=== PATIENT | male | born 1975 | race Caucasian/White ===

== ENCOUNTER 2024-12-15 07:06 | Emergency (ER) | payer OTHER, SELFPAY ==
[2024-12-15] VITALS (8 sets, daily range): BP systolic 136–170; BP diastolic 82–104; BMI 38.0
--- NOTE | 2024-12-15 07:14 | ED.GENMED ---
History of Present Illness
<Yovany Rios Mindy, DO - Last Filed: 12/15/24 07:38>
General
Chief Complaint: Abdominal Symptoms
Time Seen by Provider: 12/15/24 07:14
<Ke Alvarez MD, Resident - Last Filed: 12/15/24 11:56>
General
Source: patient
Exam Limitations: none
History of Present Illness
History of Present Illness:
This is a 49-year-old male who presents to the ED complaining of abdominal tenderness in the epigastric area that started around 2:15 AM today. The patient reports sharp abdominal pain that was initially 8/10 but got better on its own after a few
hours. The pain did not radiate anywhere else. Nothing makes the pain better, nothing makes the pain worse. He tried going to work today around 7 AM, but pain worsened prompting him to come to the ED for evaluation. He has not had this pain in
the past. He denies nausea, vomiting, diarrhea, fevers, chills, weight loss, chest pain. His last meal was last night were he had a hot sausage. He also had a bowel movement last night. At bedside, he reports pain is 5 out of 10. He denies any
abdominal surgery.
Past History
<Ke Alvarez MD, Resident - Last Filed: 12/15/24 11:56>
Past History
ED Past Medical History: GERD, HTN, Hypercholesterolemia and Other (Gout, history of kidney stones)
ED Past Surgical History: None
Social History
Tobacco: Non-smoker
Alcohol: None
Drug: None
Personal:
Living: with family
Employment: Employed
Review of Systems
<Ke Alvarez MD, Resident - Last Filed: 12/15/24 11:56>
Review of Systems
All Other Systems: ROS reviewed and negative except as documented in HPI and ROS
Constitutional: Denies fever, weight loss, fatigue or chills
Respiratory: Reports no symptoms
Cardiac: Reports no symptoms
ABD/GI: Reports abdominal pain; Denies nausea, vomiting, diarrhea, constipated, bloody stools or black stools
: Reports no symptoms
Musculoskeletal: Reports no symptoms
Phy Exam
<Ke Alvarez MD, Resident - Last Filed: 12/15/24 11:56>
General Physical Exam
General Presentation: well appearing and mild distress
General Skin: warm and dry
General Mental: alert
General Hydration: appears well hydrated
Cardiovascular Exam
Cardiovascular Exam: regular rate/rhythm and no murmur
Pulmonary Exam
Pulmonary Exam: lungs clear, no respiratory distress and no crackles
Gastrointestinal Exam
Gastrointestinal Exam: normal bowel sounds, soft, no organomegaly, no pulsatile mass, non distended and tender (Tender to palpation in epigastric region)
Auscultation of Abdomen: normal
Course
<Yovany Guillen, DO - Last Filed: 12/15/24 07:38>
Orders/Labs/Results
Orders:
Orders
12/15/24 07:17
EKG [Electrocardiogram (*1)] Urgent
Reason for Study: Abdominal Pain
12/15/24 07:18
EKG- Treatment ONCE
12/15/24 07:37
Famotidine [Pepcid] 20 mg PO NOW STA
US Abdomen Complete/Upper Stat
Comment:
Reason For Exam: epigastric pain
12/15/24 07:50
CMP [Comprehensive Metabolic Panel] Urgent
Complete Blood Count/With Diff Urgent
Lipase Urgent
12/15/24 07:52
Famotidine [Pepcid] 20 mg .ROUTE .STK-MED ONE
12/15/24 07:53
Famotidine [Pepcid] 20 mg IV NOW STA
Abnormal Lab Results
12/15/24
07:50
WBC 3.6 L 10^3/uL
(4.8-10.8)
RBC 4.50 L 10^6/uL
(4.70-6.10)
Plt Count 126 L 10^3/uL
(130-400)
Monocytes % 10.1 H %
(1.7-9.3)
Chloride 108 H mmol/L
(98-107)
Glucose 202 H mg/dl
(70-99)
ALT 70 H U/L
(0-50)
12/15/24 07:50
12/15/24 07:50
Vital Signs
Initial and Last Documented VS:
Initial Vital Signs
Temp Pulse Resp BP Pulse Ox
97.5 F 75 16 170/104 98
12/15/24 07:09 12/15/24 07:09 12/15/24 07:09 12/15/24 07:09 12/15/24 07:09
Last Documented Vital Signs
Temp Pulse Resp BP Pulse Ox
97.5 F 62 21 137/89 95
12/15/24 07:09 12/15/24 11:00 12/15/24 11:00 12/15/24 11:00 12/15/24 08:05
<Ke Alvarez MD, Resident - Last Filed: 12/15/24 11:56>
Orders/Labs/Results
Orders:
Orders
12/15/24 07:17
EKG [Electrocardiogram (*1)] Urgent
Reason for Study: Abdominal Pain
12/15/24 07:18
EKG- Treatment ONCE
12/15/24 07:37
Famotidine [Pepcid] 20 mg PO NOW STA
US Abdomen Complete/Upper Stat
Comment:
Reason For Exam: epigastric pain
12/15/24 07:50
CMP [Comprehensive Metabolic Panel] Urgent
Complete Blood Count/With Diff Urgent
Lipase Urgent
12/15/24 07:52
Famotidine [Pepcid] 20 mg .ROUTE .STK-MED ONE
12/15/24 07:53
Famotidine [Pepcid] 20 mg IV NOW STA
Abnormal Lab Results
12/15/24
07:50
WBC 3.6 L 10^3/uL
(4.8-10.8)
RBC 4.50 L 10^6/uL
(4.70-6.10)
Plt Count 126 L 10^3/uL
(130-400)
Monocytes % 10.1 H %
(1.7-9.3)
Chloride 108 H mmol/L
(98-107)
Glucose 202 H mg/dl
(70-99)
ALT 70 H U/L
(0-50)
12/15/24 07:50
12/15/24 07:50
Vital Signs
Initial and Last Documented VS:
Initial Vital Signs
Temp Pulse Resp BP Pulse Ox
97.5 F 75 16 170/104 98
12/15/24 07:09 12/15/24 07:09 12/15/24 07:09 12/15/24 07:09 12/15/24 07:09
Last Documented Vital Signs
Temp Pulse Resp BP Pulse Ox
97.5 F 62 21 137/89 95
12/15/24 07:09 12/15/24 11:00 12/15/24 11:00 12/15/24 11:00 12/15/24 08:05
<Ke Alvarez MD, Resident - Last Filed: 12/15/24 11:56>
MDM/Problems Addressed
MDM/Problems Addressed:
49y/o male with PMH of GERD presents to the ED with sharp epigastric abdominal tenderness that started this morning and does not radiate anywhere else. Denies Nausea, vomiting, diarrhea, constipation, fever, chills, CP, sob. Well appearing in mild
distress, S1/S2 present, no murmurs. Abd soft, non distended, tenderness more prominent in the epigastric region, no guarding, no rigidity. Ultrasound with Impression 'cholelithiasis and thickening of the gallbladder wall but no pericholecystic
fluid, biliary distention or pain over the gallbladder. This suggests chronic cholecystitis although acute is difficult to exclude.' Consulted Surgery to evaluate patient. Given hx of GERD, administered Pepcid in the ED. Surgery evaluated patient in
ED, recommended cholecystectomy done as an outpatient, non emergent basis.
<Ke Alvarez MD, Resident - Last Filed: 12/15/24 11:56>
*Critical Care Note
Total Time (30-74mins, 75-104mins- exclusive of procedures): Not Applicable
ED Attending Note
<Yovany Guillen DO - Last Filed: 12/15/24 07:38>
ED Attending Note
Patient seen and examined by attending physician: Yes
I performed the substantive portion of visit, reviewed & personally made and approve the management plan that is documented in note by myself or KITTY.: Yes
ED Attending Note:
Onset sharp epigastric pain overnight that worsened while going to work. No N/V/D/F/C. No CP/SOB. H/o GERD on Omeprazole and kidney stones. No surgeries. He had endoscopy due to difficulty swallowing 2 years ago and has been on omeprazole since
that time. Will add Pepcid and also check abdominal ultrasound today. He has no lower abdominal tenderness on exam.
-
Portions of this chart may have been created with voice recognition software.� Occasional wrong word or��sound alike� substitutions may have occurred due to the inherent limitations of voice recognition software.
Discharge Plan
Departure
Patient Disposition: Home (Routine Discharge)
Date of Disposition: 12/15/24
Time of Disposition: 11:48
Patient with high blood pressure during this ER visit?: Yes
Discharge Problem:
Cholecystitis
Instructions: Abdominal Pain, BLOOD PRESSURE
Referrals:
Luis Palmer DO [Family Provider] -
Sina Cavazos MD [Active] - Call in 1-3 days for appt
Interventions
Interventions:
*Risk Screen - Suicide Last Done: 12/15/24 07:09
*General Assessment Last Done: 12/15/24 07:33
*Neglect/Abuse Screening Last Done: 12/15/24 07:09
*ED- Fall Risk Assessment Last Done: 12/15/24 07:33
*ED COVID-19 Vaccine History Last Done: 12/15/24 07:33
CL-[facility]pj-[facility] Assessment Last Done: 12/15/24 07:33
Discharge Date and Time
Print Language: NAURUAN
[2024-12-15] MEDS: PEPCID 20 MG IV (07:53)
[2024-12-15 08:00] LABS: % Basophils 0.6 % (0-2); % Eosinophils 2.2 % (0-6); % Immature Granulocytes 0.3 % (0-0.5); % Lymphocytes 34.3 % (20.5-51.1); % Monocytes 10.1 % (1.7-9.3); % Neutrophils 52.5 % (42.2-75.2); Absolute Eosinophils 0.1 10^3/uL (0-0.7); Absolute Lymphocytes 1.2 10^3/uL (1.2-3.4); Absolute Monocytes 0.4 10^3/uL (0.1-0.6); Absolute Neutrophils 1.9 10^3/uL (1.4-6.5); Hematocrit 39.3 % (39.0-52.0); Hemoglobin 13.9 g/dL (13.0-18.0); Mean Corp Hgb Conc. 35.4 g/dL (33.0-37.0); Mean Corpuscular Hgb 30.9 pg (27.0-31.0); Mean Corpuscular Volume 87.3 fL (80.0-94.0); Mean Platelet Volume 9.3 fL (7.4-10.4); Nucleated Red Blood Cells % 0 % (-); Platelet Count 126 10^3/uL (130-400); Red Cell Dist. Width 13.2 % (11.5-14.5); White Blood Cell Count 3.6 10^3/uL (4.8-10.8)
[2024-12-15 08:20] LABS: ALT (SGPT) 70 U/L (0-50); AST (SGOT) 41 U/L (17-59); Albumin 4.2 g/dl (3.5-5.0); Alkaline Phosphatase 84 U/L (38-126); Blood Urea Nitrogen 17 mg/dl (9-20); Calcium 9.7 mg/dl (8.4-10.2); Carbon Dioxide 26 mmol/L (22-30); Chloride 108 mmol/L (98-107); Estimated Creatinine Clearance > 125 ml/min; Glucose 202 mg/dl (70-99); Lipase 208 U/L (23-300); Potassium 3.9 mmol/L (3.5-5.1); Sodium 144 mmol/L (135-145); eGFR > 60.00
--- NOTE | 2024-12-15 11:45 | CON.GS ---
Addendum entered and electronically signed by Sina Cavazos MD 12/15/24 16:55:
I saw and examined the patient independently.
The Dip Painter's note was reviewed and I agree with the note, assessment and plan except where noted below.
Comment: This is a very pleasant 49-year-old male with a history of GERD and hypertension who presents with 1 day history of postprandial right upper quadrant pain with 1 episode last night after sausage and peppers and then another 1 this morning
after drinking chocolate milk. His pain is now gone and his exam is reassuring as are his blood work and imaging. This is most consistent with biliary colic.
No urgent general surgical evaluation necessary at this time, however given his symptoms and imaging findings we do recommend moving forward with outpatient cholecystectomy which he will call our office to schedule.
Okay to trial diet and if patient able to tolerate okay to DC from a general surgery perspective. We will arrange a close follow-up.
For now patient to stay on a low-fat diet.
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
Original Note:
Consultation
-
Date/Time Consultation Performed: 12/15/24 1125
Medical History
-
Chief Complaint: Abdominal pain
History of Present Illness:
Mr Hernandez is a 49 yo male with a h/o GERD, HTN who presents through the ED who presents with sharp epigastric pain which began around 2 am this morning accompanied by vomiting. Last night, he had a dinner of sausage and peppers with meatballs and
later that night developed epigastric pain into the ruq. He denies prior episodes previous to this. The pain resolved but recurred this morning after he had some chocolate milk. Currently, he is pain free. On exam, there is no abdominal tenderness.
He denies active nausea. He denies fevers or chills.
Past Medical History
Past Medical History: GERD, HTN and Other (obesity)
Past Surgical History: None
Social History
Tobacco: Non-Smoker
Personal:
Living: With Family
Family History
Family History: Reviewed & Not Pertinent
Allergies / Home Medications
Allergy/AdvReac Type Severity Reaction Status Date / Time
No Known Allergies Allergy Verified 12/15/24 07:12
Review of Systems
-
History Source: Patient and Family
All other systems: Negative unless noted
A 10 point review of systems was completed, and was negative except as per HPI.
Physical Exam
Vital Signs
Temp Pulse Resp BP Pulse Ox
97.5 F 62 21 137/89 95
12/15/24 07:09 12/15/24 11:00 12/15/24 11:00 12/15/24 11:00 12/15/24 08:05
12/14/24 12/15/24 12/16/24
06:59 06:59 06:59
Actual Weight 109.9 kg
Body Mass Index (BMI) 38.0
Lab Results
12/15/24 07:50
12/15/24 07:50
WBC 3.6 10^3/uL (4.8-10.8) L 12/15/24 07:50
Hgb 13.9 g/dL (13.0-18.0) 12/15/24 07:50
Hct 39.3 % (39.0-52.0) 12/15/24 07:50
Plt Count 126 10^3/uL (130-400) L 12/15/24 07:50
Abs Immat Gran (auto) 0.0 10^3/uL (0-0.05) 12/15/24 07:50
Neutrophils % 52.5 % (42.2-75.2) 12/15/24 07:50
Physical Exam
General: Well Developed and Well Nourished
HEENT: Moist Mucous Membranes
Respiratory: Non Labored Respirations
GI: Soft, Non Tender and Non Distended
Skin: Warm and Dry
Neuro: Awake, Alert and AO x 3
Psych: Calm
Data Reviewed
-
Ultrasound: Image Personally Visualized and interpreted, Report Reviewed by me, Discussed with Physician, Discussed with Patient and Discussed with Family
Labs: Labs Reviewed by me, Discussed with Physician, Discussed with Patient and Discussed with Family
Old Records: Reviewed
Assessment / Plan
-
49 yo male presenting with biliary colic with epigastric and RUQ pain after a fatty meal. Currently his symptoms are resolved. US imaging with gallstones and likely an element of chronic cholecystitis. Pain free on exam. AFVSS. No leukocytosis. Mild
ALT elevation with normal bilirubin. Recommend cholecystectomy; however, given his resolution of pain and no concerning findings for acute infection, this can most likely be done on an outpatient, nonemergent basis.
--Low fat diet
--If no further pain with PO intake, ok to d/c to home from the ED with outpatient follow up to discuss timing of surgery.
Case discussed with patient's ER attending
--- NOTE | 2024-12-15 12:25 | EDRN ---
Reviewed discharge instructions with patient. Verbalized understanding.
== END 2024-12-15 12:32 | disposition home or self-care (01) ==
LOC: EMR 07:06
PROVIDERS: EMERGENCY PHYSICIAN Emergency Medicine; FAMILY PHYSICIAN Family Medicine
DX: K81.9 Cholecystitis, unspecified (principal); K21.9 Gastro-esophageal reflux disease without esophagitis; I10 Essential (primary) hypertension; E78.00 Pure hypercholesterolemia, unspecified; E66.9 Obesity, unspecified; Z68.38 Body mass index [BMI] 38.0-38.9, adult; Z87.442 Personal history of urinary calculi
CPT/HCPCS: 99284; 76700; 80053; 83690; 85025; 93005

== ENCOUNTER 2024-12-23 06:10 | Day surgery (SDC) | payer OTHER, SELFPAY ==
[2024-12-23] VITALS (10 sets, daily range): BP systolic 126–147; BP diastolic 73–93; BMI 36.7
[2024-12-23] MEDS: NORMOSOL-R/PLASMALYTE-A 1000 IV (06:31)
[2024-12-23] MEDS: TYLENOL 1000 MG PO (06:31)
--- NOTE | 2024-12-23 07:05 | W.SUR.PREOP ---
Pre-Operative Surgical Note
-
I have examined this patient prior to the performance of the scheduled procedure.
The patient's condition is unchanged from the time of the current History and
Physical and the patient is able to undergo the scheduled procedure.
--- NOTE | 2024-12-23 07:06 | HP.FOC2 ---
Focused History & Physical
Chief Complaint
HPI:
Chief Complaint: Right upper quadrant pain
HPI / Indication for Planned Procedure: This is a 49-year-old male with a history of GERD and hypertension who presented with a 1 day history of postprandial right upper quadrant pain earlier this month and diagnosed with biliary colic. His pain
resolved and he is now scheduled for laparoscopic cholecystectomy.
Relevant Past Medical History: Hypertension
Relevant Social History: Negative
Relevant Family History: Negative
Relevant Past Surgical History: Negative
Review of Systems
Review of Pertinent Systems: All Systems Negative
Medication
See Medication form for detailed medications: Yes
Medication List (including Herbals & OTC):
allopurinol 300 mg tablet 300 mg PO DAILY 12/17/24
amlodipine 2.5 mg tablet 7.5 mg PO HS 12/17/24
cetirizine 10 mg tablet (Zyrtec) 10 mg PO DAILY PRN allergies 12/17/24
ginkgo biloba 1 tab PO DAILY 12/17/24
lisinopril 20 mg tablet 20 mg PO BID 12/17/24
multivitamin 1 tab PO DAILY 12/17/24
omeprazole 40 mg capsule,delayed release 40 mg PO DAILY 12/17/24
pravastatin 10 mg tablet 20 mg PO DAILY 12/17/24
Medications Reviewed: Yes
Allergies and Reactions
Patient has Allergies: Yes
Noted Allergies and Reactions:
Allergy/AdvReac Type Severity Reaction Status Date / Time
pollen extracts Allergy seasonal Verified 12/23/24 06:23
allergies
Pertinent Physical Exam
All Other Systems: Negative
Head/Neck: Normal
Diagnosis / Assessment
This is a 49-year-old male with biliary colic
Plan / Procedure
Will plan for laparoscopic cholecystectomy with cholangiogram.
Anesthesia/Sedation to be done by Anesthesia Provider: Yes
--- NOTE | 2024-12-23 09:05 | W.IMMPOSTOP ---
Surgical Immed Post Op Note
-
Primary Surgeon: Sina Cavazos MD
Assisting Surgeon: None
Pre-op Diagnosis: Biliary colic
Post-op Diagnosis: Chronic cholecystitis, fatty liver disease
Procedure Performed:
1. Laparoscopic cholecystectomy with cholangiogram
2. Liver biopsy
Anesthesia Type: General
Specimen / Cultures:
1. Gallbladder and contents
2. Liver biopsy
Estimated Blood Loss: 11 cc
Complications: None
Operative Findings: Chronically inflamed gallbladder with adhesions over the anterior surface that were lysed with electrocautery dissection. Critical view of safety obtained prior to a cholangiogram which demonstrated normal biliary anatomy and no
distal filling defects. There was a small vessel running posterior along the gallbladder fossa consistent with a posterior cystic artery which was taken. There was some spillage of bile but no stones. The liver had blunted edges and looked great
on gross inspection consistent with fatty liver disease. A denial management representative sample biopsy was taken from segment IV
--- NOTE | 2024-12-23 09:07 | OR.RPT ---
Operative Report
Operative Report
Patient Name: Lupillo Hernandez
: 1975
Date of Operation: 12/23/2024
Pre-op Diagnosis: Biliary colic
Post-op Diagnosis: Chronic cholecystitis, fatty liver disease
Procedure Performed:
1. Laparoscopic cholecystectomy with cholangiogram
2. Liver biopsy
Surgeon(s):
Dr. Cavazos
Director [employer](s):
JAMES Philip
Anesthesia Type: General
Specimen / Cultures:
1. Gallbladder and contents
2. Liver biopsy
Estimated Blood Loss: 11 cc
Complications: None
HPI/Surgical Indications:
This is a 49-year-old male with a history of biliary colic, seen in our hospital a week ago. As the pain resolved he elected to perform elective cholecystectomy for which he comes in today for. Risks/Benefits/Alternatives were discussed at length,
and the patient agreed to proceed with surgery.
Operative Findings: Chronically inflamed gallbladder with adhesions over the anterior surface that were lysed with electrocautery dissection. Critical view of safety obtained prior to a cholangiogram which demonstrated normal biliary anatomy and no
distal filling defects. There was a small vessel running posterior along the gallbladder fossa consistent with a posterior cystic artery which was taken. There was some spillage of bile but no stones. The liver had blunted edges and looked great
on gross inspection consistent with fatty liver disease. A dental sales representative sample biopsy was taken from segment IV
Procedure Description:
The patient was brought to the Operating Room and placed in the supine position with one arm tucked. Following uneventful induction of general endotracheal anesthesia, an orogastric tube was placed. The abdomen was prepped and draped in the usual
sterile fashion. A timeout was performed confirming the procedure, consent, and that IV antibiotics were infused and sequential compression devices were confirmed to be on. The abdomen was entered using a left subcostal Veress technique which
required a single pass followed by a 5 mm right upper quadrant Optiview trocar. Pneumoperitoneum to 15 mmHg pressure was obtained without difficulty and we confirmed that no injury had occurred during our entry. The patient was positioned in
reverse Trendelenberg and rotated with the right side up slightly. Two 5 mm trocars were then placed along the right subcostal margin, followed by a 12 mm port in the epigastrium. The gallbladder looked chronically inflamed with some periduodenal
and omental adhesions to the anterior surface which were lysed with electrocautery dissection. A locking grasping forceps was placed on the fundus of the gallbladder where it was then retracted cephalad and to the right. This was somewhat limited
due to the large fatty liver. Using appropriate grasping instruments, the peritoneum overlying the triangle of Calot was incised and extended superiorly on both the anterior and posterior gallbladder crowder. The infundibulum was dissected off the
cystic plate. The cystic triangle was dissected until a critical view of safety was achieved. The cystic artery was medialized, dissected and controlled with 2 proximal clips and 1 distal. The cystic duct/gallbladder junction in turn was identified,
dissected circumferentially and a clip was placed. A ductotomy was made and a cholangiocatheter on an Zhou clamp was inserted into the cystic duct. A C-arm was draped and brought into the field. An intra-operative cholangiogram was performed and
was noted to have:
No filling defects in the biliary tree
No significant biliary dilation
Brisk flow of contrast into the duodenum
Normal biliary anatomy
The catheter was then removed and the cystic duct was controlled with a clip followed by a 0 PDS Endoloop. After ensuring both the artery and duct were divided, the gallbladder was freed from the liver using electrocautery. There was some spillage
of bile, but no spillage of stones. The gallbladder bed was inspected and excellent hemostasis was obtained. The gallbladder was extracted through the 12 mm trocar site using an endocatch bag. We then turned our attention to the liver which was
grossly consistent with fatty liver disease. A dental sales representative sample of the liver was taken from segment 4. This was cauterized to ensure hemostasis afterwards. The abdomen was again irrigated and excellent hemostasis was assured. All remaining
trocars were then removed and the pneumoperitoneum was evacuated. The 12 mm trocar site was closed using 0 PDS suture. All trocar sites were closed at the skin level using 4-0 Monocryl followed by Dermabond. Overall, the patient tolerated the
procedure well and was taken to the Recovery Room postoperatively in stable condition.
I was the attending physician and performed the procedure with assistance of the PA above. The assistance of JAMES Philip was required due to the complexity of the procedure. During the procedure Jaky assisted with port placement, retraction of
tissues, and closure of the wound. I was present for all portions of the case, excluding skin closure.
Sina Cavazos MD
[2024-12-23] MEDS: ZOFRAN 4 MG IV (11:15)
== END 2024-12-23 11:23 | disposition home or self-care (01) ==
LOC: SDS 06:10
PROVIDERS: ATTENDING PHYSICIAN Surgery
DX: K80.10 Calculus of gallbladder with chronic cholecystitis without obstruction (principal); K76.0 Fatty (change of) liver, not elsewhere classified
CPT/HCPCS: 47563; 47000; 88304; 88307; 74300; 76000; 88313; A4300